=== PATIENT | female | born 1935 | race Caucasian/White ===

== ENCOUNTER → 2019-08-31 | Outpatient (CLI) | payer MEDICARE, OTHER ==
[2019-08-31 20:03] LABS: Free Thyroxine 1.13 ng/dL (0.70-1.60)
[2019-08-31 20:05] LABS: Thyroid Stimulating Hormone 2.07 uIU/mL (0.360-4.800)
== END | disposition home or self-care (01) ==
LOC: LAB 17:58 → LAB SHORT 17:58
PROVIDERS: Internal Medicine Hematology & Oncology
DX: E04.1 Nontoxic single thyroid nodule (principal); D75.1 Secondary polycythemia
CPT/HCPCS: 84439; 84443

== ENCOUNTER → 2020-02-27 | Outpatient (CLI) | payer MEDICARE, OTHER ==
[2020-02-27 14:27] LABS: CHOL/HDL RATIO 3.7; Cholesterol 222 mg/dL (50-200); HDL Cholesterol 60 mg/dL (>39); LDL/HDL RATIO 2.3; Low Density Lipoprotein Chol 137 mg/dL (0-110); Triglycerides 126 mg/dL (30-160); Very Low Density Lipoprot Chol 25 mg/dL (6-32)
== END | disposition home or self-care (01) ==
LOC: LAB 13:15
PROVIDERS: Internal Medicine Hematology & Oncology
DX: E03.9 Hypothyroidism, unspecified (principal); I10 Essential (primary) hypertension; E11.9 Type 2 diabetes mellitus without complications
CPT/HCPCS: 80061; 83036; 84436; 84443

== ENCOUNTER 2021-01-15 12:10 | Inpatient (IN) | payer MEDICARE, OTHER ==
[~2021-01-15] VITALS: Ht 154.9 cm; Wt 88.5 kg
[2021-01-15] MEDS ORDERED: K-TAB ER20 ME2 PO (14:58)
[2021-01-15] MEDS ORDERED: BUMETANIDE2 M5 PO (14:58)
[2021-01-15] MEDS ORDERED: ZESTRIL40 M1 PO (14:59)
[2021-01-15 16:15] LABS: Bun/Creatinine Ratio 22.1 (12.0-20.0); Calcium, Blood 8.6 mg/dL (8.5-10.1); Creatinine, Blood 0.95 mg/dL (0.40-1.00); Potassium, Blood 3.8 mmol/L (3.5-5.5)
[2021-01-15 16:53] LABS: BASOPHILS ABSOLUTE AUTO 0.05 K/mm3 (0.00-0.23); BASOPHILS PERCENT AUTO 1 % (0-2); EOSINOPHILS ABSOLUTE AUTO 0.15 K/mm3 (0.00-0.68); EOSINOPHILS PERCENT AUTO 1 % (0-6); Hematocrit 41.2 % (33.0-51.0); Hemoglobin 13.4 g/dL (11.5-16.0); IMMATURE GRAN ABSOLUTE AUTO 0.04 K/mm3 (0.00-0.10); IMMATURE GRAN PERCENT AUTO 0 % (0-1); LYMPHOCYTES ABSOLUTE AUTO 1.18 K/mm3 (0.84-5.20); LYMPHOCYTES PERCENT AUTO 11 % (21-46); MONOCYTES ABSOLUTE AUTO 0.82 K/mm3 (0.16-1.47); MONOCYTES PERCENT AUTO 8 % (4-13); Mean Corpuscular HGB 29.9 pg (26.0-34.0); Mean Corpuscular HGB Conc 32.5 g/dL (31.5-36.5); Mean Corpuscular Volume 92 fL (80-100); Mean Platelet Volume 9.8 fL (9.1-12.4); NEUTROPHILS ABSOLUTE AUTO 8.54 K/mm3 (1.96-9.15); NEUTROPHILS PERCENT AUTO 79 % (41-73); Platelet Count 216 K/mm3 (150-400); RDW Coefficient Variation 13.7 % (11.7-14.2); RDW Standard Deviation 46.7 fL (35.1-46.3); Red Blood Cell Count 4.48 M/mm3 (3.80-5.20); White Blood Cell Count 10.78 K/mm3 (4.00-11.30)
[2021-01-15 17:14] LABS: International Normalized Ratio 1.07; Prothrombin Time Results 11.2 Sec (9.7-11.5)
[2021-01-15] MEDS ORDERED: MAGNESIUM OXID500 MG PO (17:38)
[2021-01-15] MEDS ORDERED: OMEGA-3 FISH O1 EAC6 PO (17:38)
[2021-01-15] MEDS ORDERED: VITAMIN D325 MC3 PO (17:39)
[2021-01-15] MEDS ORDERED: CYAN500 PO (17:40)
[2021-01-15] MEDS ORDERED: ASCO500 PO (17:40)
[2021-01-15] MEDS ORDERED: ZINC220 PO (17:41)
--- NOTE | 2021-01-15 18:13 | NUR ---
PT ARRIVED TO THE ROOM FROM ER AT APPROXIMATELY 1737. PT ALERT AND ORIENTED. PAIN MANAGED WHILE AT REST. PT ORIENTED TO ROOM, UNIT, AND CALL LIGHT. PT'S SON LEONIE CALLED AND UPDATED ABOUT PT CONDITION PER PT REQUEST. SECURITY NOTIFIED THAT PT WOULD LIKE TO HAVE SOME VALUABLES LOCKED IN THE SAFE. WILL CONTINUE TO MONITOR.
[2021-01-15 18:15] LABS: SARS-Cov-2 (COVID-19) PCR, MMC NEGATIVE (NEGATIVE)
--- NOTE | 2021-01-15 21:00 | NUR ---
10FR COUDE CATH PLACED USING STERILE TECNIQUE. BAG WITH UROMETER CONNECTED AND PLACED TO GRAVITY. PT TOLERATED WELL. PERICARE COMPLETED, AND STATLOCK IN PLACE. SAFETY MEASURES IN PLACE. WILL CONTINUE TO MONITOR AND ADDRESS NEEDS THEY ARISE.
[2021-01-16 01:29] LABS: Source, Urine Catheter
[2021-01-16 01:32] LABS: Appearance, Urine Hazy (Clear); Bilirubin, Urine Neg (Neg); Blood, Urine 1+ (Neg); Color, Urine Yellow (P-Yellow); Glucose Qualitative, Urine Neg (Neg); Ketones, Urine 1+ (Neg); Leukocyte Esterase, Urine 1+ (Neg); Nitrite, Urine Pos (Neg); Protein, Urine 1+ (Neg); Specific Gravity, Urine 1.015 (1.003-1.022); Urobilinogen, Urine NORM (Normal); pH, Urine 6.5 (5.0-8.0)
[2021-01-16 01:39] LABS: Amorphous Mod (0-Heavy); Bacteria Many /hpf; Red Blood Cells, Urine 0-2 /hpf (0-2); Squamous Epithelial Cells Few /hpf (Few); White Blood Cells, Urine 25-50 /hpf (0-5)
[2021-01-16 05:01] LABS: BASOPHILS ABSOLUTE AUTO 0.04 K/mm3 (0.00-0.23); BASOPHILS PERCENT AUTO 1 % (0-2); EOSINOPHILS ABSOLUTE AUTO 0.09 K/mm3 (0.00-0.68); EOSINOPHILS PERCENT AUTO 1 % (0-6); Hemoglobin 12.9 g/dL (11.5-16.0); IMMATURE GRAN ABSOLUTE AUTO 0.02 K/mm3 (0.00-0.10); IMMATURE GRAN PERCENT AUTO 0 % (0-1); LYMPHOCYTES ABSOLUTE AUTO 1.03 K/mm3 (0.84-5.20); LYMPHOCYTES PERCENT AUTO 15 % (21-46); MONOCYTES ABSOLUTE AUTO 0.72 K/mm3 (0.16-1.47); MONOCYTES PERCENT AUTO 10 % (4-13); Mean Corpuscular HGB 30.3 pg (26.0-34.0); Mean Corpuscular HGB Conc 33.1 g/dL (31.5-36.5); Mean Corpuscular Volume 92 fL (80-100); Mean Platelet Volume 9.9 fL (9.1-12.4); NEUTROPHILS ABSOLUTE AUTO 5.03 K/mm3 (1.96-9.15); NEUTROPHILS PERCENT AUTO 73 % (41-73); Platelet Count 206 K/mm3 (150-400); RDW Coefficient Variation 13.9 % (11.7-14.2); Red Blood Cell Count 4.26 M/mm3 (3.80-5.20); White Blood Cell Count 6.93 K/mm3 (4.00-11.30)
--- NOTE | 2021-01-16 05:21 | NUR ---
LYING IN LOW FOWLERS WITH EYES CLOSED, HAS RESTED WELL THIS SHIFT. RESPIRATIONS EVEN AND UNLABORED ON RA. HAS BEEN NPO [place] FOR POSSIBLE SURGERY TO LEFT DISTAL FEMUR FX BY DR. HANEY, SHE HAS BEEN ADDED TO THE OR SCHEDULE TODAY. NS AT 75ML/HR TO RIGHT AC 20G PIV X1 LTR CONTINUES TO INFUSE. LLE ELEVATED ON PILLOW FOR COMFORT. 10FR RILEY CATH PLACED PER MD ORDER USING STERILE TECHNIQUE, TOLERATED WELL. UA SENT TO LAB. PAIN MANAGED PRN PER MD ORDERS AND EMAR. DENEIS FURTHER NEEDS OR WANTS AT THIS TIME. SAFETY MEASURES IN PLACE. WILL CONTINUE T MONITOR AND ADDRESS NEEDS THEY ARISE. WILL GIVE HAND OFF TO ONCOMING SHIFT USING SBAR DURING BEDSIDE REPORT.
[2021-01-16 05:28] LABS: Alanine Aminotransfer (ALT/SGP 17 U/L (12-78); Albumin, Blood 2.5 g/dL (3.4-5.0); Albumin/Globulin Ratio 0.7 (0.8-1.8); Alk Phos 70 U/L (50-136); Anion Gap 2 mmol/L (6-16); Aspartate Aminotrans (AST/SGOT 26 U/L (12-37); Bilirubin, Total 1.9 mg/dL (0.1-1.0); Blood Urea Nitrogen 17 mg/dL (8-24); Bun/Creatinine Ratio 19.6 (12.0-20.0); CO2, Blood 29 mmol/L (21-32); Calcium, Blood 8.2 mg/dL (8.5-10.1); Chloride, Blood 111 mmol/L (98-108); Creatinine, Blood 0.87 mg/dL (0.40-1.00); Globulin, Blood 3.4 g/dL (2.2-4.0); Glomerular Filtration Rate >60 (60-); Glucose, Blood 104 mg/dL (70-99); Potassium, Blood 3.9 mmol/L (3.5-5.5); Sodium, Blood 142 mmol/L (136-145); Total Protein, Blood 5.9 g/dL (6.4-8.2)
--- NOTE | 2021-01-16 12:16 | NUR ---
PT TO SURGERY AT AROUND 1200.
--- NOTE | 2021-01-16 14:15 | NUR ---
01/16/21 1415 HIENSUMMER PT N OTED TO HAVE PRE EXISTING INDWELLING CATHATER PRIOR TO PROCEDURE.
--- NOTE | 2021-01-16 16:29 | NUR ---
ARRIVED INTO PACU VSS RECIVEVED REPORTS DRESSING CDI ON LEFT LEG FC IN PLACE
--- NOTE | 2021-01-16 17:04 | NUR ---
TO SURGICAL FLOOR, VSS WITH 2 RNS.
--- NOTE | 2021-01-16 17:14 | NUR ---
PT RETURNED FROM PACU AT THIS TIME. PT IS VERY LETHARIC AND IS NOT VERBALLY RESPONSIVE AT THIS MOMENT.
--- NOTE | 2021-01-16 17:24 | NUR ---
SHIFT SUMMARY PT STATUS POST FOR ORIF OF L FEMUR. PT IS A/O X3 AT BASELINE AND IS GRINDSTONE. UPON RETURNING FROM SURGERY SHE IS LETHARGIC AND NOT VERBALLY RESPONSIVE. PT DOES OPEN HER EYES WHEN ADDRESSED. JEFF WRAP DRESSING TO ENTIRE LEGTH OF THE L LEG CDI. HYPERTENSIVE AND TREATED PER EMR. WILL REPORT TO ONCOMING RN.
[2021-01-17 04:43] LABS: BASOPHILS ABSOLUTE AUTO 0.01 K/mm3 (0.00-0.23); BASOPHILS PERCENT AUTO 0 % (0-2); EOSINOPHILS PERCENT AUTO 0 % (0-6); Hematocrit 36.7 % (33.0-51.0); Hemoglobin 12.1 g/dL (11.5-16.0); IMMATURE GRAN ABSOLUTE AUTO 0.04 K/mm3 (0.00-0.10); IMMATURE GRAN PERCENT AUTO 0 % (0-1); LYMPHOCYTES ABSOLUTE AUTO 0.53 K/mm3 (0.84-5.20); LYMPHOCYTES PERCENT AUTO 4 % (21-46); MONOCYTES ABSOLUTE AUTO 1.11 K/mm3 (0.16-1.47); MONOCYTES PERCENT AUTO 9 % (4-13); Mean Corpuscular HGB 30.1 pg (26.0-34.0); Mean Corpuscular Volume 91 fL (80-100); NEUTROPHILS ABSOLUTE AUTO 11.02 K/mm3 (1.96-9.15); NEUTROPHILS PERCENT AUTO 87 % (41-73); Platelet Count 202 K/mm3 (150-400); RDW Coefficient Variation 13.7 % (11.7-14.2); Red Blood Cell Count 4.02 M/mm3 (3.80-5.20); White Blood Cell Count 12.71 K/mm3 (4.00-11.30)
[2021-01-17 05:02] LABS: Alanine Aminotransfer (ALT/SGP 22 U/L (12-78); Albumin, Blood 2.3 g/dL (3.4-5.0); Albumin/Globulin Ratio 0.7 (0.8-1.8); Alk Phos 61 U/L (50-136); Anion Gap 2 mmol/L (6-16); Aspartate Aminotrans (AST/SGOT 38 U/L (12-37); Bilirubin, Total 1.2 mg/dL (0.1-1.0); Blood Urea Nitrogen 16 mg/dL (8-24); Bun/Creatinine Ratio 18.7 (12.0-20.0); CO2, Blood 28 mmol/L (21-32); Chloride, Blood 109 mmol/L (98-108); Creatinine, Blood 0.85 mg/dL (0.40-1.00); Globulin, Blood 3.4 g/dL (2.2-4.0); Glomerular Filtration Rate >60 (60-); Glucose, Blood 150 mg/dL (70-99); Magnesium, Blood 1.9 mg/dL (1.6-2.4); Phosphorus, Blood 2.8 mg/dL (2.5-4.9); Potassium, Blood 4.4 mmol/L (3.5-5.5); Sodium, Blood 139 mmol/L (136-145); Total Protein, Blood 5.7 g/dL (6.4-8.2)
--- NOTE | 2021-01-17 06:10 | NUR ---
Pt in bed at this time and is resting in stable condition. AAO, no pain experienced, assisted with care and ADL, assisted with toileting needs, medicated as ordered, castle catheter is intact and is draining yellow-colored unine. Assisted with repositioning for comfort, encouraged to call for help when assistance is needed.
[2021-01-17 14:13] LABS: Influenza A, PCR Negative (NEGATIVE); Influenza B, PCR Negative (NEGATIVE); Resp Syncytial Virus, PCR Negative (NEGATIVE); SARS-Cov-2 (COVID-19) PCR, MMC Negative (NEGATIVE)
--- NOTE | 2021-01-17 15:24 | NUR ---
DISCHARGE PATIENT BEING DISCHARGED TO SNF AT [facility]. REPORT CALLED TO [facility] AT [facility]. RILEY CATH REMOVED, IV REMOVED. NO COMPLAINTS VOICED.
== END 2021-01-17 15:44 | DRG 481 ==
LOC: ER 12:10 → SURS 15:24
PROVIDERS: Emergency Medicine; Family Medicine; Nurse Practitioner Acute Care; Orthopaedic Surgery; ADMIT Internal Medicine
PROC: 0QSC04Z Reposition Left Lower Femur with Internal Fixation Device, Open Approach (ICD-10-PCS; principal; 2021-01-16 12:30)
DX: S72.492A Other fracture of lower end of left femur, initial encounter for closed fracture (principal); N39.0 Urinary tract infection, site not specified; Z20.822 Contact with and (suspected) exposure to COVID-19; E80.6 Other disorders of bilirubin metabolism; I12.9 Hypertensive chronic kidney disease with stage 1 through stage 4 chronic kidney disease, or unspecified chronic kidney disease; N18.9 Chronic kidney disease, unspecified; Z28.21 Immunization not carried out because of patient refusal; E78.5 Hyperlipidemia, unspecified; E66.01 Morbid (severe) obesity due to excess calories; Z79.899 Other long term (current) drug therapy; Z68.36 Body mass index [BMI] 36.0-36.9, adult; W18.30XA Fall on same level, unspecified, initial encounter
CPT/HCPCS: 0241U; 36415; 51702; 73502; 73552; 73560-LT; 73700; 80048; 80053; 81001; 83735; 84100; 85025; 85610; 85730; 86900; 86901; 87077; 87086; 87186; 93005; 93010; 96374; 96375; 97110; 97162; 97166; 97530; 99285-25; A9270; C1713; J0360; J0690; J0696; J1100; J1650; J2370; J2405; J2704; J2765; J3010; J7030; J7120; U0004

== ENCOUNTER → 2021-05-22 | Outpatient (CLI) | payer MEDICARE, OTHER ==
[~2021-05-22] MED LIST: ASCO500 PO; BUMETANIDE2 M5 PO; CYAN500 PO; K-TAB ER20 ME2 PO; MAGNESIUM OXID500 MG PO; OMEGA-3 FISH O1 EAC6 PO; VITAMIN D325 MC3 PO; ZESTRIL40 M1 PO; ZINC220 PO
== END | disposition home or self-care (01) ==
LOC: LAB 13:10 → LAB SHORT 13:10
DX: E03.9 Hypothyroidism, unspecified (principal)
CPT/HCPCS: 84443

== ENCOUNTER → 2022-10-16 | Outpatient (CLI) | payer MEDICARE, OTHER | END | disposition home or self-care (01) | LOC: LAB 14:02 → LAB SHORT 14:02 | DX: E53.8 Deficiency of other specified B group vitamins (principal) | CPT/HCPCS: 82607; 82746 ==

== ENCOUNTER 2024-03-14 10:13 | Inpatient (IN) | payer MEDICARE, OTHER ==
[~2024-03-14] VITALS: Ht 157.5 cm; Wt 88.2 kg
[2024-03-14 10:46] LABS: BASOPHILS ABSOLUTE AUTO 0.06 K/mm3 (0.00-0.23); BASOPHILS PERCENT AUTO 1 % (0-2); EOSINOPHILS ABSOLUTE AUTO 0.09 K/mm3 (0.00-0.68); EOSINOPHILS PERCENT AUTO 1 % (0-6); Hematocrit 45.5 % (33.0-51.0); Hemoglobin 15.2 g/dL (11.5-16.0); IMMATURE GRAN ABSOLUTE AUTO 0.04 K/mm3 (0.00-0.10); IMMATURE GRAN PERCENT AUTO 0 % (0-1); LYMPHOCYTES ABSOLUTE AUTO 1.11 K/mm3 (0.84-5.20); LYMPHOCYTES PERCENT AUTO 9 % (21-46); MONOCYTES ABSOLUTE AUTO 1.55 K/mm3 (0.16-1.47); MONOCYTES PERCENT AUTO 13 % (4-13); Mean Corpuscular HGB 30.8 pg (26.0-34.0); Mean Corpuscular HGB Conc 33.4 g/dL (31.5-36.5); Mean Corpuscular Volume 92 fL (80-100); Mean Platelet Volume 9.4 fL (9.1-12.4); NEUTROPHILS ABSOLUTE AUTO 9.47 K/mm3 (1.96-9.15); NEUTROPHILS PERCENT AUTO 77 % (41-73); Platelet Count 234 K/mm3 (150-400); RDW Coefficient Variation 13.5 % (11.7-14.2); RDW Standard Deviation 46.5 fL (35.1-46.3); Red Blood Cell Count 4.94 M/mm3 (3.80-5.20); White Blood Cell Count 12.32 K/mm3 (4.00-11.30)
[2024-03-14 11:10] LABS: Albumin/Globulin Ratio 0.7 (0.8-1.8); Bilirubin, Total 2.3 mg/dL (0.1-1.0); Bun/Creatinine Ratio 21.6 (12.0-20.0); Calcium, Blood 9.3 mg/dL (8.5-10.1); Creatinine, Blood 1.16 mg/dL (0.40-1.00); Globulin, Blood 4.4 g/dL (2.2-4.0); Total Protein, Blood 7.4 g/dL (6.4-8.2)
[2024-03-14] MEDS ORDERED: Metoprolol Succinate 25 MG TABCR PO ONE (13:05)
[2024-03-14] MEDS ORDERED: NS 1,000 ML IV SCH (13:05)
[2024-03-14] MEDS ORDERED: Metoprolol Tartrate 1 MG/ML 5 ML VIAL IV ONE (13:05)
[2024-03-14] MEDS ORDERED: Azithromycin 500 MG in NS 250 ML IV ONE (13:55)
[2024-03-14] MEDS ORDERED: CefTRIAXone Sodium 1,000 MG in NS 50 ML IV ONE (13:55)
[2024-03-14 14:35] LABS: Source, Urine Clean Catch
[2024-03-14 14:44] LABS: Appearance, Urine Cloudy (Clear); Bilirubin, Urine Neg (Neg); Blood, Urine 3+ (Neg); Color, Urine Yellow (P-Yellow); Glucose Qualitative, Urine Neg (Neg); Ketones, Urine 1+ (Neg); Leukocyte Esterase, Urine 3+ (Neg); Nitrite, Urine Neg (Neg); Protein, Urine 2+ (Neg); Urobilinogen, Urine NORM (Normal)
[2024-03-14 15:09] LABS: White Blood Cells, Urine TNTC /hpf (0-5)
[2024-03-14 15:10] LABS: Bacteria Many /hpf; Squamous Epithelial Cells Rare /hpf (Few)
[2024-03-14] MEDS ORDERED: FLU VACC TS2024-25(6MOS UP)/PF 45 MCG/0.5 ML SYRINGE IM SCH (15:15)
[2024-03-14 15:36] LABS: CHOL/HDL RATIO 2.8; Cholesterol 144 mg/dL (50-200); HDL Cholesterol 51 mg/dL (>39); LDL/HDL RATIO 1.5; Low Density Lipoprotein Chol 76 mg/dL (0-110); Triglycerides 86 mg/dL (30-160); Very Low Density Lipoprot Chol 17 mg/dL (6-32)
--- NOTE | 2024-03-14 18:38 | NUR ---
ADMISSION SUMMARY: PT ADMITTED TO ROOM 310. REPORT RECEIVED FROM TELLO MERCADO. PT AWAKE AND ABLE TO RESPOND TO QUESTIONS APPROPRIATELY ON ADMIT. NO S/S OF DISTRESS. ON 1 LPM VIA NC. TRANSFERRED TO HOSPITAL BED USING SLIDE SHEET. PT ORIENTED TO ROOM AND CALL LIGHT. PT DINNER TRAY ARRIVED AND PT SET UP TO EAT. NO S/S OF SWALLOWING DIFFICULTIES AT THIS TIME. WILL REPORT TO ONCDC MERCADO.
[2024-03-14 18:43] VITALS: BP 138/84
[2024-03-14 20:04] VITALS: BP 131/79
[2024-03-14] MEDS ORDERED: Lactobacil 2-S.Thermo-Bifido 1 1 Cap PO SCH (21:00)
[2024-03-15 04:49] LABS: BASOPHILS ABSOLUTE AUTO 0.04 K/mm3 (0.00-0.23); BASOPHILS PERCENT AUTO 1 % (0-2); EOSINOPHILS ABSOLUTE AUTO 0.33 K/mm3 (0.00-0.68); EOSINOPHILS PERCENT AUTO 4 % (0-6); Hematocrit 40.4 % (33.0-51.0); Hemoglobin 13.4 g/dL (11.5-16.0); IMMATURE GRAN ABSOLUTE AUTO 0.02 K/mm3 (0.00-0.10); IMMATURE GRAN PERCENT AUTO 0 % (0-1); LYMPHOCYTES ABSOLUTE AUTO 1.09 K/mm3 (0.84-5.20); LYMPHOCYTES PERCENT AUTO 14 % (21-46); MONOCYTES ABSOLUTE AUTO 1.13 K/mm3 (0.16-1.47); MONOCYTES PERCENT AUTO 15 % (4-13); Mean Corpuscular HGB 30.8 pg (26.0-34.0); Mean Corpuscular HGB Conc 33.2 g/dL (31.5-36.5); Mean Corpuscular Volume 93 fL (80-100); Mean Platelet Volume 9.5 fL (9.1-12.4); NEUTROPHILS ABSOLUTE AUTO 4.95 K/mm3 (1.96-9.15); NEUTROPHILS PERCENT AUTO 66 % (41-73); Platelet Count 188 K/mm3 (150-400); RDW Coefficient Variation 13.2 % (11.7-14.2); RDW Standard Deviation 45.8 fL (35.1-46.3); Red Blood Cell Count 4.35 M/mm3 (3.80-5.20); White Blood Cell Count 7.56 K/mm3 (4.00-11.30)
[2024-03-15 05:18] VITALS: BP 146/85
[2024-03-15 05:25] LABS: Bun/Creatinine Ratio 22.6 (12.0-20.0); Calcium, Blood 8.6 mg/dL (8.5-10.1); Creatinine, Blood 0.97 mg/dL (0.40-1.00); Potassium, Blood 3.3 mmol/L (3.5-5.5)
--- NOTE | 2024-03-15 06:20 | NUR ---
Pt admitted from ED at change of shift last night, here for LL PNA, and UTI. Pt voiding, urine cloudy and odorous. Lungs are clear, but diminished in LL. Tele runs Afib in the 100's. O2 tapered to RA and slept well through night between cares. Pt son called this am and was updatted. Ambulates with supervision to BR.
[2024-03-15 07:12] VITALS: BP 124/74
[2024-03-15] MEDS ORDERED: NS 250 ML IV PRN (07:40)
[2024-03-15] MEDS ORDERED: Potassium Chloride 20 MEQ/15 ML UDC PO ONE (07:45)
[2024-03-15] MEDS ORDERED: CefTRIAXone Sodium 1,000 MG in NS 100 ML IV SCH (09:00)
[2024-03-15] MEDS ORDERED: Enoxaparin 40 MG/0.4 ML SYR SC SCH (09:00)
[2024-03-15] MEDS ORDERED: Potassium Chloride 20 MEQ TabCR PO SCH (09:00)
[2024-03-15] MEDS ORDERED: Azithromycin 500 MG in NS 250 ML IV SCH (09:00)
[2024-03-15] MEDS ORDERED: Bumetanide 1 MG Tab PO SCH (09:00)
--- NOTE | 2024-03-15 10:10 | NUR ---
NOTE: NOTIFIED BY TELE OF ELEVATED HR, 120-150. DR. DELGADO NOTIFIED AND MADE AWARE PT WAS AMBULATING. PT SAID TO CONTINUE MONITORING FOR NOW DUE TO OTHER FACTORS. ALSO NOTIFIED BY NUCLEAR MEDICINE THAT [facility]YROID [facility] SCAN REQUIRES MEDICATION TO BE SHIPPED FROM [facility]. THEY RECOMMEND DOING THE EXAM OUTPATIENT. DR. DELGADO NOTIFIED AND HE SAID OKAY TO DO EXAM OUTPATIENT AND TO CANCEL FOR NOW.
[2024-03-15] MEDS ORDERED: Methimazole 10 MG Tab PO ONE (11:10)
[2024-03-15 15:30] VITALS: BP 111/63
--- NOTE | 2024-03-15 16:56 | NUR ---
SHIFT SUMMARY PT AOX4, CALLS AND MAKES HER NEEDS KNOWN. NURSE ASSIST TO THE BR. INCONTINENT AT TIMES, BRIEF IN PLACE AND CHANGED NEEDED. NO COMPLAINTS BY THE PT TODAY. PG PLACED THIS SHIFT. PT REPOSITIONED WHEN IN BED AND UP IN THE CHAIR. UP TO THE CHAIR TODAY. EVENTS PER TELE, SEE OTHER NOTE, PROVIDER AWARE. FAMILY AT THE BS TODAY. CALL LIGHT WITHIN REACH, BED LOCKED AND IN THE LOWEST POSITION. WILL REPORT TO ONCOMING NURSE.
[2024-03-15 21:00] VITALS: BP 133/51
[2024-03-16 04:46] VITALS: BP 121/66
--- NOTE | 2024-03-16 05:13 | NUR ---
SHIFT SUMMARY NOC PT A/O X 4. PLEASANT AND COOPERATIVE WITH CARE. VSS. PT ON 1L/NC SPO2 >92%. PT HAS EAR PROBE IN PLACE NOW DUE TO POOR PERFUSION BUE, AND IS READING MUCH BETTER. PT HAS POWERGLIDE MAR THAT DRAWS. ONT TELE SINUS TACH IN LOW 100'S. PT CURRENTLY RESTING WITH BED IN LOWEST POSITION, AND CALL LIGHT WITHIN REACH.
[2024-03-16 07:39] VITALS: BP 136/80
[2024-03-16] MEDS ORDERED: Metoprolol Succinate 25 MG TABCR PO SCH (09:00)
[2024-03-16] MEDS ORDERED: Methimazole 10 MG Tab PO SCH (09:00)
[2024-03-16 09:33] LABS: BASOPHILS ABSOLUTE AUTO 0.06 K/mm3 (0.00-0.23); BASOPHILS PERCENT AUTO 1 % (0-2); EOSINOPHILS ABSOLUTE AUTO 0.41 K/mm3 (0.00-0.68); EOSINOPHILS PERCENT AUTO 5 % (0-6); Hematocrit 44.3 % (33.0-51.0); Hemoglobin 14.7 g/dL (11.5-16.0); IMMATURE GRAN ABSOLUTE AUTO 0.02 K/mm3 (0.00-0.10); IMMATURE GRAN PERCENT AUTO 0 % (0-1); LYMPHOCYTES ABSOLUTE AUTO 1.56 K/mm3 (0.84-5.20); LYMPHOCYTES PERCENT AUTO 18 % (21-46); MONOCYTES ABSOLUTE AUTO 0.72 K/mm3 (0.16-1.47); MONOCYTES PERCENT AUTO 8 % (4-13); Mean Corpuscular HGB 30.4 pg (26.0-34.0); Mean Corpuscular HGB Conc 33.2 g/dL (31.5-36.5); Mean Corpuscular Volume 92 fL (80-100); Mean Platelet Volume 9.4 fL (9.1-12.4); NEUTROPHILS ABSOLUTE AUTO 6.07 K/mm3 (1.96-9.15); NEUTROPHILS PERCENT AUTO 69 % (41-73); Platelet Count 268 K/mm3 (150-400); RDW Coefficient Variation 13.2 % (11.7-14.2); RDW Standard Deviation 45.1 fL (35.1-46.3); Red Blood Cell Count 4.84 M/mm3 (3.80-5.20); White Blood Cell Count 8.84 K/mm3 (4.00-11.30)
[2024-03-16 09:55] LABS: Calcium, Blood 9.1 mg/dL (8.5-10.1); Creatinine, Blood 1.08 mg/dL (0.40-1.00); Potassium, Blood 4.2 mmol/L (3.5-5.5)
--- NOTE | 2024-03-16 15:25 | NUR ---
PT ANTONIA HADLEY CONTACTED FOR DISCHARGE TRANSPORTATION. COMFIRMED TIME AROUND [phone] FOR HEAD OF MAINTENANCE
[2024-03-16] MEDS ORDERED: BUME2 PO (15:40)
[2024-03-16] MEDS ORDERED: POTCHL20ER PO (15:40)
[2024-03-16] MEDS ORDERED: METO25ER PO (15:41)
[2024-03-16] MEDS ORDERED: ELIQUIS5 M2 PO (15:41)
[2024-03-16] MEDS ORDERED: METHI10 PO (15:41)
[2024-03-16] MEDS ORDERED: CEFD300 PO (15:42)
--- NOTE | 2024-03-16 16:21 | NUR ---
PT DISCHARGED DC INSTRUCTIONS GIVEN TO THE PATIENT BY CAT THE RN. THE PT WAS TRANSFERED VIA WHEELCHAIR ACCOMPANIED BY HER SON. QUINCY RELEASED TO THE PATIENT
--- NOTE | 2024-03-16 17:27 | NUR ---
DISCHARGE SUMMARY PT EDUCATED ON DISCHARGE INFORMATION. PT VERBALIZES UNDERSTANDING OF INFORMATION, PT SON IN ROOM AND VERBALIZED UNDERSTANDING. PT SON SPOKE TO DR DELGADO ON THE PHONE REGARDING D/C CONCERNS. PT AND FAMILY AGREED TO DISCHARGE. PT VSS, NO COMPLAINTS OF PAIN, CP/PRESSURE OR SOB. PT IV REMOVED. MEDS SENT TO Marv LÓPEZ. PT DISCHARGE VIA W/C TO PERSONAL VEHICLE. ALL BELONGINGS OOR AND W/ PT. PT DISCHARGED, NO ACUTE EVENTS.
[2024-03-18 18:22] LABS: TSH RECEPTOR ANTIBODY <1.10 IU/L (<=1.75)
== END 2024-03-16 16:19 | disposition home or self-care (01) | DRG 193 ==
LOC: ER 10:13 → ERHOLD 10:14 → MEDS 18:26
PROVIDERS: Physician Assistant; Student in an Organized Health Care Education/Training Program; ADMIT Student in an Organized Health Care Education/Training Program
DX: J18.9 Pneumonia, unspecified organism (principal); J96.01 Acute respiratory failure with hypoxia; N39.0 Urinary tract infection, site not specified; R65.10 Systemic inflammatory response syndrome (SIRS) of non-infectious origin without acute organ dysfunction; I48.92 Unspecified atrial flutter; I48.91 Unspecified atrial fibrillation; E04.1 Nontoxic single thyroid nodule; E05.90 Thyrotoxicosis, unspecified without thyrotoxic crisis or storm; B96.20 Unspecified Escherichia coli [E. coli] as the cause of diseases classified elsewhere; E78.5 Hyperlipidemia, unspecified; E03.9 Hypothyroidism, unspecified; Z66 Do not resuscitate; M94.0 Chondrocostal junction syndrome [Tietze]; I12.9 Hypertensive chronic kidney disease with stage 1 through stage 4 chronic kidney disease, or unspecified chronic kidney disease; N18.32 Chronic kidney disease, stage 3b; I35.0 Nonrheumatic aortic (valve) stenosis; E66.01 Morbid (severe) obesity due to excess calories; Z88.8 Allergy status to other drugs, medicaments and biological substances; Z87.891 Personal history of nicotine dependence; R73.03 Prediabetes; Z90.89 Acquired absence of other organs; Z90.49 Acquired absence of other specified parts of digestive tract; Z90.710 Acquired absence of both cervix and uterus; Z90.722 Acquired absence of ovaries, bilateral; Z90.79 Acquired absence of other genital organ(s); Z98.890 Other specified postprocedural states; Z68.35 Body mass index [BMI] 35.0-35.9, adult
CPT/HCPCS: 36415; 71046; 76536; 80048; 80053; 80061; 81001; 83036; 83520; 83605; 83735; 84439; 84443; 84481; 84484; 85025; 85379; 87040; 87077; 87086; 87186; 93005; 93010; 93306; 94762; 96361; 96374; 99285-25; A9270; C1751; J0456; J0696; J1650; J7030; J7050

== ENCOUNTER → 2024-03-21 | Outpatient (CLI) | payer MEDICARE, OTHER ==
[~2024-03-21] MED LIST changes: +BUME2 PO; +CEFD300 PO; +ELIQUIS5 M2 PO; +METHI10 PO; +METO25ER PO; +POTCHL20ER PO
[2024-03-21 12:30] LABS: Source, Urine Clean Catch
[2024-03-21 15:50] LABS: Appearance, Urine Clear (Clear); Bilirubin, Urine Neg (Neg); Blood, Urine Neg (Neg); Color, Urine Yellow (P-Yellow); Glucose Qualitative, Urine Neg (Neg); Ketones, Urine Neg (Neg); Leukocyte Esterase, Urine Neg (Neg); Nitrite, Urine Neg (Neg); Protein, Urine Neg (Neg); Specific Gravity, Urine 1.015 (1.003-1.022); Urobilinogen, Urine NORM (Normal)
== END ==
LOC: LAB SHORT 12:27 → LAB 12:27
PROVIDERS: Physician Assistant
DX: N39.0 Urinary tract infection, site not specified (principal)
CPT/HCPCS: 81003

== ENCOUNTER → 2024-06-17 | Outpatient (CLI) | payer MEDICARE, OTHER | LOC: LAB 17:16 → LAB SHORT 17:16 | DX: R41.0 Disorientation, unspecified (principal) | CPT/HCPCS: 87077; 87086; 87186 ==

== ENCOUNTER 2025-03-14 13:45 | Inpatient (IN) | payer MEDICARE, OTHER ==
[~2025-03-14] VITALS: Ht 157.5 cm; Wt 97.1 kg
[~2025-03-14 13:45] MED LIST changes: -CALC.25 PO; -ELIQUIS2.5 MG PO; -EZET10 PO; -HYDR1TAB94 PO; -VISBIOME 112.51 EACH PO
[2025-03-14 14:19] LABS: BASOPHILS ABSOLUTE AUTO 0.05 K/mm3 (0.00-0.23); BASOPHILS PERCENT AUTO 1 % (0-2); EOSINOPHILS ABSOLUTE AUTO 0.19 K/mm3 (0.00-0.68); EOSINOPHILS PERCENT AUTO 2 % (0-6); Hematocrit 43.4 % (33.0-51.0); Hemoglobin 14.1 g/dL (11.5-16.0); IMMATURE GRAN ABSOLUTE AUTO 0.03 K/mm3 (0.00-0.10); IMMATURE GRAN PERCENT AUTO 0 % (0-1); LYMPHOCYTES ABSOLUTE AUTO 1.27 K/mm3 (0.84-5.20); LYMPHOCYTES PERCENT AUTO 15 % (21-46); MONOCYTES ABSOLUTE AUTO 0.75 K/mm3 (0.16-1.47); MONOCYTES PERCENT AUTO 9 % (4-13); Mean Corpuscular HGB Conc 32.5 g/dL (31.5-36.5); Mean Corpuscular Volume 93 fL (80-100); NEUTROPHILS ABSOLUTE AUTO 6.13 K/mm3 (1.96-9.15); NEUTROPHILS PERCENT AUTO 73 % (41-73); NRBC ABSOLUTE 0.00 K/mm3 (0.00-0.02); NRBC Auto 0.0 /100 WBC (0.0-0.2); Platelet Count 246 K/mm3 (150-400); RDW Coefficient Variation 14.6 % (11.7-14.2); RDW Standard Deviation 50.4 fL (35.1-46.3)
[2025-03-14 14:55] LABS: Alanine Aminotransfer (ALT/SGP 21.0 U/L (12-78); Albumin, Blood 3.0 g/dL (3.4-5.0); Albumin/Globulin Ratio 0.9 (0.8-1.8); Anion Gap 8.0 mmol/L (3-11); Aspartate Aminotrans (AST/SGOT 14.0 U/L (12-37); Bilirubin, Total 1.2 mg/dL (0.1-1.0); Blood Urea Nitrogen 22.0 mg/dL (8-24); CO2, Blood 28.0 mmol/L (21-32); Calcium, Blood 8.9 mg/dL (8.5-10.1); Chloride, Blood 106.0 mmol/L (98-108); Creatinine, Blood 1.62 mg/dL (0.40-1.00); Globulin, Blood 3.2 g/dL (2.2-4.0); Glucose, Blood 114.0 mg/dL (70-99); Potassium, Blood 4.0 mmol/L (3.5-5.5); Sodium, Blood 138.0 mmol/L (136-145); Total Protein, Blood 6.2 g/dL (6.4-8.2)
[2025-03-14 15:05] LABS: Source, Urine Foley catheter
[2025-03-14 15:13] LABS: Bilirubin, Urine Neg (Neg); Color, Urine Yellow (P-Yellow); Glucose Qualitative, Urine Neg (Neg); Ketones, Urine Neg (Neg); Leukocyte Esterase, Urine 3+ (Neg); Protein, Urine 3+ (Neg); Specific Gravity, Urine 1.015 (1.003-1.022); Urobilinogen, Urine NORM (Normal)
[2025-03-14 15:31] LABS: White Blood Cells, Urine TNTC /hpf (0-5)
[2025-03-14] MEDS ORDERED: CefTRIAXone Sodium 1,000 MG in NS 100 ML IV ONE (15:50)
[2025-03-14 16:06] LABS: Alanine Aminotransfer (ALT/SGP 22.0 U/L (12-78); Albumin, Blood 2.8 g/dL (3.4-5.0); Albumin/Globulin Ratio 0.8 (0.8-1.8); Aspartate Aminotrans (AST/SGOT 23.0 U/L (12-37); Bilirubin, Direct 0.3 mg/dL (0.0-0.3); Bilirubin, Indirect 0.9 mg/dL (0.1-0.7); Bilirubin, Total 1.2 mg/dL (0.1-1.0); Globulin, Blood 3.4 g/dL (2.2-4.0); Magnesium, Blood 2.2 mg/dL (1.6-2.4); Phosphorus, Blood 2.5 mg/dL (2.5-4.9); Total Protein, Blood 6.2 g/dL (6.4-8.2)
[2025-03-14] MEDS ORDERED: FLU VACC TS2025(65UP)/MF59C/PF 45 MCG/0.5 ML SYRINGE IM SCH (17:35)
[2025-03-14] MEDS ORDERED: HYDROcodone 5-APAP 325 TAB PO PRN (17:40)
[2025-03-14] MEDS ORDERED: NS 1,000 ML IV SCH (18:55)
[2025-03-14 19:27] VITALS: BP 159/91
[2025-03-14] MEDS ORDERED: HYDR1TAB94 PO (20:54)
[2025-03-14] MEDS ORDERED: EZET10 PO (20:55)
[2025-03-14] MEDS ORDERED: CALC.25 PO (20:56)
[2025-03-14] MEDS ORDERED: ELIQUIS2.5 MG PO (20:57)
[2025-03-14] MEDS ORDERED: Lactobacil 2-S.Thermo-Bifido 1 1 Cap PO SCH (21:00)
--- NOTE | 2025-03-14 23:45 | NUR ---
SPOKE WITH PT'S SON UVALDO, GAVE UPDATE ON PT'S CARE. UVALDO WILL BE HERE IN THE MORNING.
--- NOTE | 2025-03-15 03:49 | NUR ---
SHIFT SUMMARY RONNIE ARRIVED AT BEGINNING OF SHIFT. HERE FOR SEPSIS, LIKELY SECONDARY TO UTI OR GASTROENTERITIS. ALERT & ORIENTED. PLEASANT AND COOPERATIVE WITH CARES. ABLE TO MAKE NEEDS KNOWN. SHE HAS NOT HAD ANY STOOL OUTPUT THIS SHIFT. SHE IS A 1 PERSON ASSIST TO THE BATHROOM. IV IN HER RFA RUNNING NS AT 75. ON TELE, AFIB WITH HR IN THE LOW 100'S. HEART HEALTHY DIET. MOST RECENT LACTIC ACID ON 03/14 @ 1938 DOWN TO 1.6. NORCO IS AVAILABLE Q6 PRN. PT DENIES PAIN THROUGHOUT SHIFT. VSS. BED IN LOWEST POSITION. CALL LIGHT IN REACH.
[2025-03-15 04:24] VITALS: BP 147/95
[2025-03-15 05:33] LABS: BASOPHILS ABSOLUTE AUTO 0.06 K/mm3 (0.00-0.23); BASOPHILS PERCENT AUTO 1 % (0-2); EOSINOPHILS ABSOLUTE AUTO 0.18 K/mm3 (0.00-0.68); EOSINOPHILS PERCENT AUTO 2 % (0-6); Hematocrit 45.9 % (33.0-51.0); Hemoglobin 15.0 g/dL (11.5-16.0); IMMATURE GRAN ABSOLUTE AUTO 0.04 K/mm3 (0.00-0.10); IMMATURE GRAN PERCENT AUTO 0 % (0-1); LYMPHOCYTES ABSOLUTE AUTO 0.84 K/mm3 (0.84-5.20); LYMPHOCYTES PERCENT AUTO 8 % (21-46); MONOCYTES ABSOLUTE AUTO 0.87 K/mm3 (0.16-1.47); MONOCYTES PERCENT AUTO 9 % (4-13); Mean Corpuscular HGB Conc 32.7 g/dL (31.5-36.5); Mean Corpuscular Volume 93 fL (80-100); NEUTROPHILS ABSOLUTE AUTO 8.14 K/mm3 (1.96-9.15); NEUTROPHILS PERCENT AUTO 80 % (41-73); NRBC ABSOLUTE 0.00 K/mm3 (0.00-0.02); NRBC Auto 0.0 /100 WBC (0.0-0.2); Platelet Count 190 K/mm3 (150-400); RDW Coefficient Variation 14.7 % (11.7-14.2); RDW Standard Deviation 50.7 fL (35.1-46.3)
[2025-03-15 05:47] LABS: Alanine Aminotransfer (ALT/SGP 18.0 U/L (12-78); Albumin, Blood 2.7 g/dL (3.4-5.0); Albumin/Globulin Ratio 0.8 (0.8-1.8); Anion Gap 9.0 mmol/L (3-11); Aspartate Aminotrans (AST/SGOT 18.0 U/L (12-37); Bilirubin, Total 1.4 mg/dL (0.1-1.0); Blood Urea Nitrogen 20.0 mg/dL (8-24); CO2, Blood 27.0 mmol/L (21-32); Calcium, Blood 8.4 mg/dL (8.5-10.1); Chloride, Blood 108.0 mmol/L (98-108); Creatinine, Blood 1.47 mg/dL (0.40-1.00); Globulin, Blood 3.3 g/dL (2.2-4.0); Glucose, Blood 120.0 mg/dL (70-99); Magnesium, Blood 2.2 mg/dL (1.6-2.4); Potassium, Blood 3.8 mmol/L (3.5-5.5); Sodium, Blood 140.0 mmol/L (136-145); Total Protein, Blood 6.0 g/dL (6.4-8.2)
[2025-03-15 07:24] VITALS: BP 138/77
[2025-03-15 11:26] VITALS: BP 123/82
[2025-03-15 16:16] VITALS: BP 106/94
[2025-03-15] MEDS ORDERED: CefTRIAXone Sodium 1,000 MG in NS 100 ML IV SCH (18:00)
--- NOTE | 2025-03-15 18:07 | NUR ---
END OF SHIFT NOTE PATIENT RESTING IN CHAIR, A&O4, ABLE TO MAKE NEEDS KNOWN, CALL LIGHT IN REACH, FAMILY AT BEDSIDE. ATTENDS IN PLACE, PATIENT AMBULATES TO BATHROOM WITH SBA, WITH FWW. IV INFUSING ABX TO ORDER. TELE IN PLACE, AFIB AND TACHY WITH AMBULATION. HEART RATE 80-150. PATIENT DENIES CHEST PAIN OR PRESSURE. POSSIBLE D/C TOMORROW.
[2025-03-15 20:45] VITALS: BP 148/80
[2025-03-15 23:35] VITALS: BP 151/73
[2025-03-16 05:05] VITALS: BP 136/66
--- NOTE | 2025-03-16 05:33 | NUR ---
SHIFT SUMMARY: PT AOX3-4 SOME CONFUSION BUT REORIENTS EASILY. PLEASANT AND COOPERATIVE IN CARE. ATTEMPTED OUT OF BED ONE TIME BUT GOT BACK INTO BED WITHOUT ISSUE. AMBULATING WELL SBA WITH FWW TO THE BATHROOM. TOLERATING MEDICATIONS WELL. NO ACUTE OVERNIGHT EVENTS. PT IN BED RESTING, BED IN LOWEST POSITION, CALL LIGHT IN REACH. CONTINUING CARE.
[2025-03-16 07:16] LABS: BASOPHILS ABSOLUTE AUTO 0.04 K/mm3 (0.00-0.23); BASOPHILS PERCENT AUTO 1 % (0-2); EOSINOPHILS ABSOLUTE AUTO 0.28 K/mm3 (0.00-0.68); EOSINOPHILS PERCENT AUTO 4 % (0-6); Hematocrit 41.8 % (33.0-51.0); Hemoglobin 14.0 g/dL (11.5-16.0); IMMATURE GRAN ABSOLUTE AUTO 0.04 K/mm3 (0.00-0.10); IMMATURE GRAN PERCENT AUTO 1 % (0-1); LYMPHOCYTES ABSOLUTE AUTO 1.15 K/mm3 (0.84-5.20); LYMPHOCYTES PERCENT AUTO 16 % (21-46); MONOCYTES ABSOLUTE AUTO 0.53 K/mm3 (0.16-1.47); MONOCYTES PERCENT AUTO 8 % (4-13); Mean Corpuscular HGB Conc 33.5 g/dL (31.5-36.5); Mean Corpuscular Volume 92 fL (80-100); NEUTROPHILS ABSOLUTE AUTO 4.99 K/mm3 (1.96-9.15); NEUTROPHILS PERCENT AUTO 71 % (41-73); NRBC ABSOLUTE 0.00 K/mm3 (0.00-0.02); NRBC Auto 0.0 /100 WBC (0.0-0.2); Platelet Count 210 K/mm3 (150-400); RDW Coefficient Variation 14.8 % (11.7-14.2); RDW Standard Deviation 49.5 fL (35.1-46.3)
[2025-03-16 07:17] LABS: Alanine Aminotransfer (ALT/SGP 17.0 U/L (12-78); Albumin, Blood 2.7 g/dL (3.4-5.0); Albumin/Globulin Ratio 0.8 (0.8-1.8); Anion Gap 10.0 mmol/L (3-11); Aspartate Aminotrans (AST/SGOT 19.0 U/L (12-37); Bilirubin, Total 1.0 mg/dL (0.1-1.0); Blood Urea Nitrogen 23.0 mg/dL (8-24); CO2, Blood 25.0 mmol/L (21-32); Calcium, Blood 8.0 mg/dL (8.5-10.1); Chloride, Blood 106.0 mmol/L (98-108); Creatinine, Blood 1.73 mg/dL (0.40-1.00); Globulin, Blood 3.4 g/dL (2.2-4.0); Glucose, Blood 102.0 mg/dL (70-99); Phosphorus, Blood 3.1 mg/dL (2.5-4.9); Potassium, Blood 3.8 mmol/L (3.5-5.5); Sodium, Blood 137.0 mmol/L (136-145); Total Protein, Blood 6.1 g/dL (6.4-8.2)
[2025-03-16 07:51] VITALS: BP 135/65
--- NOTE | 2025-03-16 10:33 | NUR ---
NOTE: CALLED PT'S SON, LEONIE, BACK AND PROVIDED AN UPDATE.
--- NOTE | 2025-03-16 12:14 | NUR ---
NOTE: NOTIFIED BY TELE THIS AM, TWICE, THAT PT'S HR INCREASES WITH AMBULATION. STRIPS IN THE CHART. NOTIFIED DR. PATEL AND THERE ARE NO NEW ORDERS AT THIS TIME. PT IS RECOVERING WHEN BACK AT REST.
[2025-03-16 13:50] VITALS: BP 145/93
[2025-03-16 15:19] VITALS: BP 168/77
--- NOTE | 2025-03-16 17:02 | NUR ---
SHIFT SUMMARY PT AOX4, SBA WITH THE FWW TO THE BR. CALLS AND MAKES HER NEEDS KNOWN. NO ACUTE COMPLAINTS THIS SHIFT. REPOSITIONED THROUGHOUT THE SHIFT, UP TO THE CHAIR THIS EVENING. TOLERATING IT WELL. SEE NOTE ABOUT EVENTS PER TELE, DR. PATEL IS AWARE. CALL LIGHT WITHIN REACH, BED LOCKED AND IN THE LOWEST POSITION. WILL REPORT TO ONCOMING NURSE.
[2025-03-16 20:54] VITALS: BP 171/87
[2025-03-17 00:25] VITALS: BP 149/96
--- NOTE | 2025-03-17 04:15 | NUR ---
SHIFT SUMMARY PATIENT HAD NO ACUTE CHANGES. AXOX 3-4. SBA W/FWW TO BR. PIV INTACT. TELE MONITOR AFIB 105. ONE EVENT HR UP TO 150 WHEN UP TO BR AND BACK DOWN WHEN BACK IN BED. DENIES CHEST PAIN, SOB, AND NV. VSS/AFEBRILE. SLEPT MOST OF THE SHIFT. CALL LIGHT IN REACH. BED IN LOWEST POSITION. WILL CONTINUE TO MONITOR UNTIL DAY SHIFT NURSE ASSUMES CARE.
[2025-03-17 04:55] VITALS: BP 144/92
[2025-03-17 07:23] LABS: Albumin, Blood 2.8 g/dL (3.4-5.0); Anion Gap 9 mmol/L (3-11); Blood Urea Nitrogen 28 mg/dL (8-24); CO2, Blood 28 mmol/L (21-32); Calcium, Blood 8.9 mg/dL (8.5-10.1); Chloride, Blood 107 mmol/L (98-108); Creatinine, Blood 1.52 mg/dL (0.40-1.00); Glucose, Blood 92 mg/dL (70-99); Phosphorus, Blood 3.3 mg/dL (2.5-4.9); Potassium, Blood 3.3 mmol/L (3.5-5.5); Sodium, Blood 141 mmol/L (136-145)
[2025-03-17 08:31] VITALS: BP 137/75
[2025-03-17 12:23] VITALS: BP 130/97
[2025-03-17] MEDS ORDERED: CEFD300 PO (13:53)
[2025-03-17] MEDS ORDERED: VISBIOME 112.51 EACH PO (13:54)
--- NOTE | 2025-03-17 16:36 | NUR ---
DISCHARGE NOTE PT DISCHARGED TO HOME, PICKED UP BY HER SON. IV REMOVED. TELE RETURNED. MEDICATIONS FAXED TO THE PHARMACY OF HER CHOICE. DISCHARGE INFORMATION AND EDUCATION REVIEWED WITH THE PT. PERSONAL BELONGINGS RETURNED.
== END 2025-03-17 15:10 | disposition home or self-care (01) | DRG 872 ==
LOC: ER 13:45 → MEDS 17:33 → ERHOLD 17:33 → MEDS 19:07
PROVIDERS: Physician Assistant; Student in an Organized Health Care Education/Training Program; ADMIT Family Medicine
DX: A41.51 Sepsis due to Escherichia coli [E. coli] (principal); N39.0 Urinary tract infection, site not specified; N17.9 Acute kidney failure, unspecified; I48.91 Unspecified atrial fibrillation; N18.9 Chronic kidney disease, unspecified; I12.9 Hypertensive chronic kidney disease with stage 1 through stage 4 chronic kidney disease, or unspecified chronic kidney disease; E88.09 Other disorders of plasma-protein metabolism, not elsewhere classified; E80.6 Other disorders of bilirubin metabolism; I49.3 Ventricular premature depolarization; R19.7 Diarrhea, unspecified; E78.5 Hyperlipidemia, unspecified; Z88.8 Allergy status to other drugs, medicaments and biological substances; Z79.01 Long term (current) use of anticoagulants; Z87.891 Personal history of nicotine dependence; Z90.49 Acquired absence of other specified parts of digestive tract
CPT/HCPCS: 36415; 51701; 76705; 80053; 80069; 80076; 81001; 83605; 83735; 84100; 85025; 87077; 87086; 87186; 93005; 93010; 96365; 99285-25; A9270; J0696; J7030

== ENCOUNTER → 2025-03-14 | Outpatient (CLI) | payer MEDICARE, OTHER ==
[~2025-03-14] MED LIST changes: +CALC.25 PO; +ELIQUIS2.5 MG PO; +EZET10 PO; +HYDR1TAB94 PO; +METOPROLOL SUCC25 MG PO; +VISBIOME 112.51 EACH PO
[2025-03-14 11:37] LABS: BASOPHILS ABSOLUTE AUTO 0.08 K/mm3 (0.00-0.23); BASOPHILS PERCENT AUTO 1 % (0-2); EOSINOPHILS ABSOLUTE AUTO 0.24 K/mm3 (0.00-0.68); EOSINOPHILS PERCENT AUTO 2 % (0-6); Hematocrit 48.7 % (33.0-51.0); Hemoglobin 15.8 g/dL (11.5-16.0); IMMATURE GRAN ABSOLUTE AUTO 0.04 K/mm3 (0.00-0.10); IMMATURE GRAN PERCENT AUTO 0 % (0-1); LYMPHOCYTES ABSOLUTE AUTO 1.41 K/mm3 (0.84-5.20); LYMPHOCYTES PERCENT AUTO 14 % (21-46); MONOCYTES ABSOLUTE AUTO 0.78 K/mm3 (0.16-1.47); MONOCYTES PERCENT AUTO 8 % (4-13); Mean Corpuscular HGB Conc 32.4 g/dL (31.5-36.5); Mean Corpuscular Volume 94 fL (80-100); NEUTROPHILS ABSOLUTE AUTO 7.50 K/mm3 (1.96-9.15); NEUTROPHILS PERCENT AUTO 75 % (41-73); NRBC ABSOLUTE 0.00 K/mm3 (0.00-0.02); NRBC Auto 0.0 /100 WBC (0.0-0.2); RDW Coefficient Variation 14.9 % (11.7-14.2); RDW Standard Deviation 51.1 fL (35.1-46.3)
[2025-03-14 11:45] LABS: Platelet Count 256 K/mm3 (150-400)
[2025-03-14 11:47] LABS: Alanine Aminotransfer (ALT/SGP 23.0 U/L (12-78); Albumin, Blood 3.4 g/dL (3.4-5.0); Albumin/Globulin Ratio 0.8 (0.8-1.8); Anion Gap 13.0 mmol/L (3-11); Aspartate Aminotrans (AST/SGOT 26.0 U/L (12-37); Bilirubin, Total 1.5 mg/dL (0.1-1.0); Blood Urea Nitrogen 23.0 mg/dL (8-24); CO2, Blood 28.0 mmol/L (21-32); Calcium, Blood 9.2 mg/dL (8.5-10.1); Chloride, Blood 104.0 mmol/L (98-108); Creatinine, Blood 1.81 mg/dL (0.40-1.00); Globulin, Blood 4.3 g/dL (2.2-4.0); Glucose, Blood 117.0 mg/dL (70-99); Magnesium, Blood 2.2 mg/dL (1.6-2.4); Potassium, Blood 4.4 mmol/L (3.5-5.5); Sodium, Blood 141.0 mmol/L (136-145); Total Protein, Blood 7.7 g/dL (6.4-8.2)
== END | disposition home or self-care (01) ==
LOC: LAB 11:32 → LAB SHORT 11:32
PROVIDERS: Chiropractor
DX: I48.91 Unspecified atrial fibrillation (principal); I95.9 Hypotension, unspecified; R60.0 Localized edema
CPT/HCPCS: 80053; 83605; 83735; 83880; 84484; 85025